=== PATIENT | male | born 1945 | race Caucasian/White ===

== ENCOUNTER 2019-01-12 20:26 | Emergency (ER) | payer BC, MEDICARE ==
[~2019-01-12] VITALS: Ht 172.7 cm; Wt 79.2 kg
--- NOTE | 2019-01-12 21:39 | NUR ---
HAS SEEN PATIENT. AWAITING LABS A RAD AT THIS TIME. PT ON ALL MONITORING. POC DISCUSSED. PT AND SPOUSE DENY FURTHER NEEDS AT THIS TIME. FURTHERMORE, PTS DAUGHTER VAL HAS CALLED AND STATES THEY ARE DISSATISFIED WITH THE WAIT TIME TO SEE A DOCTOR. DAUGHTER WAS INFORMED PT WENT STRAIGHT TO A ROOM [facility] AND BEEN ON MONITORING SINCE. 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 POC.
[2019-01-12 21:58] LABS: MD NO; MEAN CORPUSCULAR HEMOGLOBIN 31.7 pg (27.5-34.5); MEAN CORPUSCULAR HGB CONC 33.4 g/dL (33.2-36.2)
[2019-01-12 22:08] LABS: ALBUMIN 4.2 g/dL (3.4-5.0); ANION GAP 5 mmol/L (5-15); CALCIUM 9.1 mg/dL (8.5-10.1); CHLORIDE 110 mmol/L (98-107)
[2019-01-12 22:09] LABS: INTERNATIONAL NORMALIZED RATIO 1.01 (0.93-1.1); PROTHROMBIN TIME 10.6 Seconds (9.6-11.5)
[2019-01-12 22:12] LABS: TROPONIN I < 0.015 ng/mL (0.000-0.045)
[2019-01-12 22:42] LABS: BASOPHILS # (AUTO) 0.03 x10^3/uL (0-0.1); BASOPHILS % (AUTO) 0 % (0-1); EOSINOPHILS # (AUTO) 0.05 x10^3/uL (0-0.4); EOSINOPHILS % (AUTO) 1 % (1-7); LYMPHOCYTES # (AUTO) 1.24 x10^3/uL (1-3.4); LYMPHOCYTES % (AUTO) 14 % (22-44); MEAN CORPUSCULAR VOLUME 94.9 fL (81-97); MEAN PLATELET VOLUME 8.5 fL (7.4-10.4); MONOCYTES # (AUTO) 0.79 x10^3/uL (0.2-0.8); MONOCYTES % (AUTO) 9 % (2-9); NEUTROPHILS # (AUTO) 7.05 x10^3/uL (1.8-6.8); NEUTROPHILS % (AUTO) 77 % (42-75); PLATELET COUNT 273 x10^3/uL (130-400); RED BLOOD COUNT 5.39 x10^6/uL (4.38-5.82); RED CELL DISTRIBUTION WIDTH 13.5 % (9.4-14.8)
--- NOTE | 2019-01-12 22:43 | NUR ---
POC DISCUSSED. PT AND SPOUSE AWARE PENDING LAB RESULTS AT THIS TIME. SPOUSE GIVEN BLANKET PER REQUEST. PT AND SPOUSE DENY FURTHER NEEDS AT THIS TIME. CALL LIGHT ON BED.
--- NOTE | 2019-01-12 23:11 | NUR ---
PT UP FOR RECHECK AT THIS TIME. AWAITING
[2019-01-12 23:50] VITALS: BP 134/80
== END 2019-01-12 23:52 | disposition home or self-care (01) ==
LOC: ED 22:00
DX: R00.2 Palpitations (principal); R42 Dizziness and giddiness; R53.83 Other fatigue; I10 Essential (primary) hypertension
CPT/HCPCS: 36415; 71046; 80048; 82040; 84484; 85025; 85610; 85730; 93005; 99284